=== PATIENT | female | born 1930 | race Caucasian/White ===

== ENCOUNTER → 2020-06-03 | Outpatient (CLI) | payer OTHER | LOC: LAB SRC 10:22 → LAB SHORT 10:22 | DX: R30.9 Painful micturition, unspecified (principal) | CPT/HCPCS: 87077; 87086; 87147; 87186 ==

== ENCOUNTER → 2020-08-22 | Outpatient (CLI) | payer OTHER | LOC: LAB SHORT 11:30 → LAB SRC 11:30 | DX: N39.0 Urinary tract infection, site not specified (principal) | CPT/HCPCS: 87077; 87086; 87186 ==

== ENCOUNTER → 2021-06-21 | Outpatient (CLI) | payer OTHER ==
[2021-06-22 09:44] LABS: Candida species (DNA Probe) Negative (NEGATIVE); G. vaginalis (DNA Probe) Negative (NEGATIVE); T. vaginalis (DNA Probe) Negative (NEGATIVE)
== END ==
LOC: LAB SHORT 17:41
PROVIDERS: Nurse Practitioner Family
DX: N89.8 Other specified noninflammatory disorders of vagina (principal)
CPT/HCPCS: 87480; 87510; 87660

== ENCOUNTER 2021-08-26 12:05 | Emergency (ER) | payer OTHER ==
[~2021-08-26] VITALS: Ht 154.9 cm; Wt 50.8 kg
[2021-08-26] MEDS ORDERED: HYDROCODONE-AC1 EAC7 PO (12:18)
[2021-08-26] MEDS ORDERED: AMLODIPINE BESY10 MG PO (12:18)
[2021-08-26] MEDS ORDERED: LATA.005SO (12:18)
[2021-08-26] MEDS ORDERED: NEURONTIN300 MG PO (12:18)
[2021-08-26] MEDS ORDERED: ESTRADIOL0.5 MG PO (12:19)
[2021-08-26] MEDS ORDERED: LOSARTAN POTAS100 M1 PO (12:20)
[2021-08-26] MEDS ORDERED: METO50ER PO (12:20)
== END 2021-08-26 14:56 | disposition home or self-care (01) ==
LOC: ER 12:05
DX: S01.511A Laceration without foreign body of lip, initial encounter (principal); S40.011A Contusion of right shoulder, initial encounter; W10.9XXA Fall (on) (from) unspecified stairs and steps, initial encounter; Z88.2 Allergy status to sulfonamides; Z88.8 Allergy status to other drugs, medicaments and biological substances; Z79.899 Other long term (current) drug therapy; I10 Essential (primary) hypertension; F17.200 Nicotine dependence, unspecified, uncomplicated
CPT/HCPCS: 12011; 70450; 72125; 73030; 96374; 99284-25; A9270; J1885